=== PATIENT | male | born 1960 | race Caucasian/White ===

== ENCOUNTER 2024-02-12 18:17 | Inpatient (IN) | payer OTHER ==
[~2024-02-12] VITALS: Ht 152.4 cm; Wt 68.9 kg
[2024-02-12] MEDS ORDERED: MORPHINE SULFATE 2 MG/1 ML DISP.SYRIN ONE ×2 (19:09→20:35)
[2024-02-12 19:30] LABS: DIFFERENTIAL COMMENT 0
[2024-02-12 19:33] LABS: BASOPHILS % (AUTO) 0.4 % (0.0-2.0); EOSINOPHILS # (AUTO) 0.1 K/uL (0.0-0.7); EOSINOPHILS % (AUTO) 0.6 % (0.0-7.0); HEMATOCRIT 26.2 % (36.7-47.1); HEMOGLOBIN 8.3 g/dL (12.5-16.3); LYMPHOCYTES # (AUTO) 1.9 K/uL (0.8-4.8); LYMPHOCYTES % (AUTO) 18.3 % (20.5-51.5); MEAN CORPUSCULAR HEMOGLOBIN 23.3 uug (23.8-33.4); MEAN CORPUSCULAR HGB CONC 32 g/dL (32.5-36.3); MONOCYTES # (AUTO) 0.5 K/uL (0.1-1.30); MONOCYTES % (AUTO) 4.9 % (0.0-11.0); NEUTROPHILS # (AUTO) 7.9 K/uL (1.8-8.9); NEUTROPHILS % (AUTO) 75.8 % (38.5-71.5); PLATELET COUNT (AUTO) 225 K/uL (152-348); RED BLOOD CELL COUNT(AUTO) 3.58 MIL/uL (4.06-5.63); RED CELL DISTRIBUTION WIDTH 18.7 % (12.1-16.2); WHITE BLOOD COUNT (AUTO) 10.4 K/uL (3.6-10.2)
[2024-02-12] MEDS: MORPHINE SULFATE 2 MG/1 ML DISP.SYRIN IV ONE ×2 (19:35→20:42)
[2024-02-12] MEDS ORDERED: NITROGLYCERIN 0.4 MG/TAB BOTTLE SL ONE (19:48)
[2024-02-12 19:49] LABS: ALANINE AMINOTRANSFERASE 13 U/L (16-63); ALBUMIN 2.7 g/dL (3.4-5.0); ALKALINE PHOSPHATASE 108 U/L (50-136); ASPARTATE AMINOTRANSFERASE 6 U/L (15-37); BILIRUBIN,TOTAL 0.3 mg/dL (0.2-1.0); CALCIUM 8.2 mg/dL (8.5-10.1); CARBON DIOXIDE 24 mmol/L (21-32); CHLORIDE 104 mmol/L (98-107); CREATININE 1.1 mg/dL (0.6-1.3); GLUCOSE 112 mg/dL (74-106); NT-PRO BNP 3250 pg/mL (0-125); POTASSIUM 3.8 mmol/L (3.5-5.1); SODIUM SERUM 139 mmol/L (136-145); TOTAL PROTEIN, SERUM 7.9 g/dL (6.4-8.2); UREA NITROGEN, BLOOD 27 mg/dL (7-18)
[2024-02-12 19:52] LABS: BILIRUBIN,DIRECT < 0.1 mg/dL (0.0-0.2)
[2024-02-12] MEDS ORDERED: MAGNESIUM HYDROXIDE 30 ML LIQUID UDC PO PRN (22:00)
[2024-02-12] MEDS ORDERED: ONDANSETRON 4 MG/2 ML VIAL IV PRN (22:00)
[2024-02-12] MEDS ORDERED: REMEDY ESSENTIAL ZINC PASTE 113 GM TP PRN (22:00)
[2024-02-12] MEDS ORDERED: ACETAMINOPHEN 325 MG TABLET PO PRN (22:00)
[2024-02-12] MEDS ORDERED: MORPHINE SULFATE 4 MG/1 ML DISP.SYRIN ONE (22:16)
[2024-02-12] MEDS: MORPHINE SULFATE 4 MG/1 ML DISP.SYRIN IV ONE (22:24)
[2024-02-12] MEDS: ENOXAPARIN SODIUM 40 MG/0.4 ML DISP.SYRIN SQ SCH (22:24)
[2024-02-13] MEDS ORDERED: MORPHINE SULFATE 2 MG/1 ML DISP.SYRIN ONE (00:12)
[2024-02-13 01:00] VITALS: BP 137/80; TEMP 97.8; O2SAT 95
[2024-02-13] MEDS: NITROGLYCERIN 0.4 MG/TAB BOTTLE SL PRN (01:28)
[2024-02-13] MEDS: HYDROCODONE/APAP 10-325 MG TABLET PO PRN (01:51)
[2024-02-13] MEDS ORDERED: HYDROCODONE/APAP 5-325MG TABLET PO PRN (02:15)
[2024-02-13] MEDS: HYDROCODONE/APAP 5-325MG TABLET PO PRN ×2 (05:45→17:26)
[2024-02-13 06:52] LABS: BASOPHILS # (AUTO) 0.1 K/UL (0.0-0.2); BASOPHILS % (AUTO) 0.6 % (0.0-2.0); EOSINOPHILS # (AUTO) 0.1 K/uL (0.0-0.7); EOSINOPHILS % (AUTO) 0.8 % (0.0-7.0); HEMATOCRIT 28.5 % (36.7-47.1); LYMPHOCYTES # (AUTO) 2.7 K/uL (0.8-4.8); LYMPHOCYTES % (AUTO) 28.3 % (20.5-51.5); MEAN CORPUSCULAR HEMOGLOBIN 23.3 uug (23.8-33.4); MEAN CORPUSCULAR HGB CONC 32 g/dL (32.5-36.3); MEAN CORPUSCULAR VOLUME 73.7 fL (73.0-96.2); MONOCYTES # (AUTO) 0.5 K/uL (0.1-1.30); MONOCYTES % (AUTO) 4.8 % (0.0-11.0); NEUTROPHILS # (AUTO) 6.4 K/uL (1.8-8.9); NEUTROPHILS % (AUTO) 65.5 % (38.5-71.5); PLATELET COUNT (AUTO) 231 K/uL (152-348); RED BLOOD CELL COUNT(AUTO) 3.86 MIL/uL (4.06-5.63); RED CELL DISTRIBUTION WIDTH 18.7 % (12.1-16.2); WHITE BLOOD COUNT (AUTO) 9.7 K/uL (3.6-10.2)
[2024-02-13 07:06] LABS: DIFFERENTIAL COMMENT 1
[2024-02-13 07:16] LABS: CALCIUM 8.6 mg/dL (8.5-10.1); CREATININE 0.8 mg/dL (0.6-1.3); PHOSPHOROUS 2.7 mg/dL (2.5-4.9); POTASSIUM 3.4 mmol/L (3.5-5.1)
[2024-02-13 07:55] VITALS: BP 135/66; TEMP 98.4; O2SAT 97
[2024-02-13] MEDS ORDERED: HYDR-4077 PO (08:04)
[2024-02-13] MEDS ORDERED: ISOS60TA72 PO (08:04)
[2024-02-13] MEDS ORDERED: POLY17PO4 PO (08:07)
[2024-02-13] MEDS ORDERED: METO50TA16 PO (08:12)
[2024-02-13] MEDS ORDERED: LUBI24CA5 PO (08:12)
[2024-02-13] MEDS ORDERED: FURO-152 PO (08:12)
[2024-02-13] MEDS ORDERED: BACL10TA PO (08:28)
[2024-02-13] MEDS ORDERED: L. A1TAB10 PO (08:28)
[2024-02-13] MEDS ORDERED: GABA300C PO (08:28)
[2024-02-13] MEDS ORDERED: CLOP75TA33 PO (08:28)
[2024-02-13] MEDS ORDERED: FOLI1TAB94 PO (08:28)
[2024-02-13] MEDS ORDERED: DOCU100C36 PO (08:28)
[2024-02-13] MEDS ORDERED: POTA-194 PO (08:28)
[2024-02-13] MEDS ORDERED: MULT-594 PO (08:28)
[2024-02-13] MEDS ORDERED: PANT40TA2 PO (08:28)
[2024-02-13] MEDS ORDERED: ZINC220T3 PO (08:28)
[2024-02-13] MEDS ORDERED: ZOLP5TAB8 PO (08:28)
[2024-02-13] MEDS ORDERED: CYAN500T9 PO (08:28)
[2024-02-13] MEDS ORDERED: BUSP10TA3 PO (08:28)
[2024-02-13] MEDS ORDERED: ASCO500C18 PO (08:28)
[2024-02-13] MEDS ORDERED: ATOR80TA PO (08:28)
[2024-02-13] MEDS ORDERED: CHOL10005 PO (08:28)
[2024-02-13] MEDS ORDERED: ASPI-495 PO (08:28)
[2024-02-13] MEDS ORDERED: AMLO2.5T4 PO (08:28)
[2024-02-13] MEDS ORDERED: METOPROLOL TARTRATE 50 MG TABLET PO SCH ×2 (09:00→12:15)
[2024-02-13] MEDS: CLOPIDOGREL 75 MG TABLET PO SCH (09:00)
[2024-02-13] MEDS: METOPROLOL TARTRATE 50 MG TABLET PO SCH (09:13)
[2024-02-13] MEDS: ASPIRIN 81 MG TAB.CHEW PO SCH (09:13)
[2024-02-13] MEDS: ISOSORBIDE MONONITRATE 60 MG TAB.SR.24H PO SCH (09:13)
[2024-02-13] MEDS ORDERED: MIRALAX 17 GM POWD.PACK PO PRN (12:15)
[2024-02-13] MEDS: busPIRone 10 MG TABLET PO SCH (12:30)
[2024-02-13] MEDS: GABAPENTIN 300 MG CAPSULE PO SCH (12:33)
[2024-02-13] MEDS: BACLOFEN 10 MG TABLET PO SCH (12:33)
[2024-02-13] MEDS: hydrALAZINE HCL 50 MG TABLET PO SCH (12:34)
[2024-02-13] MEDS: AMLODIPINE 2.5 MG TABLET PO SCH (12:38)
[2024-02-13] MEDS: POTASSIUM CHLORIDE 20 MEQ TAB.PRT.SR PO SCH (12:38)
[2024-02-13 16:36] VITALS: BP 107/37; TEMP 97.3; O2SAT 98
[2024-02-13] MEDS: PANTOPRAZOLE SODIUM 40 MG TABLET.DR PO SCH (16:50)
[2024-02-13] MEDS: FUROSEMIDE 20 MG TABLET PO SCH (16:50)
[2024-02-13 20:00] VITALS: BP 115/63; TEMP 98; O2SAT 97
[2024-02-13] MEDS: ATORVASTATIN 40 MG TABLET PO SCH (20:49)
[2024-02-14 04:00] VITALS: BP 109/65; TEMP 98.1; O2SAT 95
[2024-02-14 07:28] VITALS: BP 99/39; TEMP 97.9; O2SAT 97
[2024-02-14 09:00] VITALS: BP 99/39
[2024-02-14] MEDS ORDERED: ASPIRIN EC 81 MG TABLET.DR PO SCH (09:00)
[2024-02-14] MEDS: FOLIC ACID 1 MG TABLET PO SCH (09:00)
[2024-02-14] MEDS ORDERED: CLOPIDOGREL 75 MG TABLET PO SCH (09:00)
[2024-02-14] MEDS ORDERED: ISOSORBIDE MONONITRATE 60 MG TAB.SR.24H PO SCH (09:00)
[2024-02-14] MEDS: DOCUSATE SODIUM 100 MG CAPSULE PO SCH (09:00)
== END 2024-02-14 11:05 | disposition short-term general hospital (02) | DRG 206 ==
LOC: ER 18:25 → TELE3 21:29 → MEDSURG3 02-14 08:15
PROVIDERS: ADMIT Internal Medicine; ATTEND Nurse Practitioner Acute Care
PROC: 05HC33Z Insertion of Infusion Device into Left Basilic Vein, Percutaneous Approach (ICD-10-PCS; principal; 2024-02-13)
DX: T82.855A Stenosis of coronary artery stent, initial encounter (principal); G82.20 Paraplegia, unspecified; D63.8 Anemia in other chronic diseases classified elsewhere; E11.51 Type 2 diabetes mellitus with diabetic peripheral angiopathy without gangrene; I25.110 Atherosclerotic heart disease of native coronary artery with unstable angina pectoris; I50.9 Heart failure, unspecified; I11.0 Hypertensive heart disease with heart failure; E87.6 Hypokalemia; I25.5 Ischemic cardiomyopathy; Z89.512 Acquired absence of left leg below knee; Z89.511 Acquired absence of right leg below knee; E78.5 Hyperlipidemia, unspecified; Z95.1 Presence of aortocoronary bypass graft; G89.29 Other chronic pain; M54.50 Low back pain, unspecified; K21.9 Gastro-esophageal reflux disease without esophagitis; F41.9 Anxiety disorder, unspecified; F32.A Depression, unspecified; Z86.718 Personal history of other venous thrombosis and embolism; Z79.82 Long term (current) use of aspirin; Z79.02 Long term (current) use of antithrombotics/antiplatelets; Z93.59 Other cystostomy status; Z79.899 Other long term (current) drug therapy; N31.9 Neuromuscular dysfunction of bladder, unspecified
CPT/HCPCS: 36415; 71045; 83735; 84100; 84484; 85025; 85730; 93005; A4663; G0378; J1650; J2270